=== PATIENT | male | born 1965 | race Two or more races ===

== ENCOUNTER → 2023-11-10 09:45 | Outpatient (REF) | payer OTHER, SELFPAY | LOC: HWRCS 09:45 | PROVIDERS: ATTENDING PHYSICIAN Internal Medicine Cardiovascular Disease; FAMILY PHYSICIAN Family Medicine | DX: I27.29 Other secondary pulmonary hypertension (principal) | CPT/HCPCS: 93306 ==

== ENCOUNTER 2023-12-26 10:22 | Emergency (ER) | payer OTHER, SELFPAY ==
[2023-12-26 10:23] VITALS: BP 167/104
[2023-12-26 10:40] VITALS: BP 147/87
[2023-12-26 10:44] VITALS: BMI 30.1
--- NOTE | 2023-12-26 10:46 | ED.GENMED ---
History of Present Illness
<Megan Morel PA-C - Last Filed: 12/26/23 18:31>
General
Chief Complaint: Urinary Symptoms
Source: patient
Exam Limitations: none
Time Seen by Provider: 12/26/23 10:36
Nursing documentation reviewed up to this point in time: agreed with
History of Present Illness
History of Present Illness:
Patient is a 50-year-old male with history CAD, hypertension,, kidney stones presenting to the emergency department for evaluation of right flank discomfort. Patient states symptoms started yesterday evening around 930 after he woke up flight of
stairs. He reports pain is right flank all associated dysuria, hematuria, malodorous urine. He did have 1 episode of nausea this morning. Patient denies any fever, chills, vomiting. Patient was seen by his primary care physician this morning and
due to concern of kidney stones and signs of infection on urinalysis was sent to the emergency department for further evaluation.
Patient does have a history of kidney stones a few years ago which required surgical management. Patient states this pain is not nearly as severe as prior kidney stone pain.
Patient does take Plavix.
Past History
<Megan Morel PA-C - Last Filed: 12/26/23 18:31>
Past History
ED Past Medical History: CAD, CHF, GERD, HTN and Psychiatric
ED Past Surgical History: Cardiac and Orthopedic
Social History
Tobacco: Non-smoker
Alcohol: Occasional
Drug: None
Personal:
Living: with family
Review of Systems
<Megan Morel PA-C - Last Filed: 12/26/23 18:31>
Review of Systems
Allergies reviewed?: Yes
All Other Systems: ROS reviewed and negative except as documented in HPI and ROS
Phy Exam
<Megan Morel PA-C - Last Filed: 12/26/23 18:31>
Physical Exam
Physical Exam:
Vitals: Mildly hypertensive, otherwise vital signs stable. Afebrile
General: Patient is well appearing, no acute distress.
Skin: Warm and dry, no rashes or lesions
Head: Normocephalic, atraumatic
Throat: Protecting airway
Neck: Normal ROM, no cervical spine tenderness, no meningismus
Cardiac: Regular rate and rhythm, no murmurs.
Pulm: Normal respiratory effort, no wheezes, rales, rhonchi heard on exam.
Abdomen: Abdomen soft. Mild tenderness in right mid abdomen and right lower abdomen without rebound tenderness or guarding. No CVA tenderness
Extremities: No evidence of cyanosis or edema. Great distal pulses
Neuro: Grossly intact.
Psychiatric: Normal affect.
Course
<Megan Morel PA-C - Last Filed: 12/26/23 18:31>
Orders/Labs/Results
Orders:
Orders
12/26/23 10:44
Complete Blood Count/With Diff Urgent
Comprehensive Metabolic Panel Urgent
Urinalysis Reflex To Culture Urgent
Date Specimen was Collected: 12/26/23
Time Specimen was Collected: 10:34
Urine Microscopic Reflex Cult Urgent
Urine Culture Urgent
NED Source: U
Specimen Description:
Date Specimen was Collected: 12/26/23
Time Specimen was Collected: 10:34
12/26/23 11:01
0.9% Sodium Chloride 1000 ml [Nss] 1,000 ml IV BOLUS
12/26/23 11:03
CT Abd/pel Without Iv Or Oral Urgent
Comment:
Reason For Exam: R flank pain +hematuria
12/26/23 12:24
CefTRIAXone [Rocephin] 1,000 mg IV NOW STA
12/26/23 12:39
Ondansetron Injectable [Zofran] 4 mg .ROUTE .[facility]
Ondansetron Injectable [Zofran] 4 mg IV NOW STA
Ondansetron Injectable [Zofran] 4 mg IV NOW STA
Abnormal Lab Results
12/26/23
10:44
MCH 31.3 H pg
(27.0-31.0)
Absolute Neuts (auto) 7.8 H 10^3/uL
(1.4-6.5)
Absolute Monos (auto) 0.7 H 10^3/uL
(0.1-0.6)
Lymphocytes % 17.2 L %
(20.5-51.1)
Glucose 102 H mg/dl
(70-99)
Ur Occult Blood Reflex 4+ A
(Negative)
Urine Nitrite (Reflex) Positive A
(Negative)
Leukocyte Esterase Rfl 1+ A
(Negative)
Urine RBC 80-90 A /HPF
(0-2)
Urine WBC (Reflex) 50-60 A /HPF
(0-5)
Urine Bacteria (Reflex) Many A
(Negative)
Urine Glucose 3+ A
(Negative)
Urine Albumin (Reflex) 1+ A
(Neg - Trace)
12/26/23 10:44
12/26/23 10:44
Vital Signs
Initial and Last Documented VS:
Initial Vital Signs
Temp Pulse Resp BP Pulse Ox
98.5 F 84 18 167/104 98
12/26/23 10:23 12/26/23 10:23 12/26/23 10:23 12/26/23 10:23 12/26/23 10:23
Last Documented Vital Signs
Temp Pulse Resp BP Pulse Ox
98.5 F 79 17 150/86 98
12/26/23 10:23 12/26/23 11:33 12/26/23 11:33 12/26/23 12:43 12/26/23 12:45
<Andrew Bhatia, DO - Last Filed: 12/26/23 12:24>
Orders/Labs/Results
Orders:
Orders
12/26/23 10:44
Complete Blood Count/With Diff Urgent
Comprehensive Metabolic Panel Urgent
Urinalysis Reflex To Culture Urgent
Date Specimen was Collected: 12/26/23
Time Specimen was Collected: 10:34
Urine Microscopic Reflex Cult Urgent
Urine Culture Urgent
NED Source: U
Specimen Description:
Date Specimen was Collected: 12/26/23
Time Specimen was Collected: 10:34
12/26/23 11:01
0.9% Sodium Chloride 1000 ml [Nss] 1,000 ml IV BOLUS
12/26/23 11:03
CT Abd/pel Without Iv Or Oral Urgent
Comment:
Reason For Exam: R flank pain +hematuria
12/26/23 12:24
CefTRIAXone [Rocephin] 1,000 mg IV NOW STA
12/26/23 12:39
Ondansetron Injectable [Zofran] 4 mg .ROUTE .[facility]-MED ONE
Ondansetron Injectable [Zofran] 4 mg IV NOW STA
Ondansetron Injectable [Zofran] 4 mg IV NOW STA
Abnormal Lab Results
12/26/23
10:44
MCH 31.3 H pg
(27.0-31.0)
Absolute Neuts (auto) 7.8 H 10^3/uL
(1.4-6.5)
Absolute Monos (auto) 0.7 H 10^3/uL
(0.1-0.6)
Lymphocytes % 17.2 L %
(20.5-51.1)
Glucose 102 H mg/dl
(70-99)
Ur Occult Blood Reflex 4+ A
(Negative)
Urine Nitrite (Reflex) Positive A
(Negative)
Leukocyte Esterase Rfl 1+ A
(Negative)
Urine RBC 80-90 A /HPF
(0-2)
Urine WBC (Reflex) 50-60 A /HPF
(0-5)
Urine Bacteria (Reflex) Many A
(Negative)
Urine Glucose 3+ A
(Negative)
Urine Albumin (Reflex) 1+ A
(Neg - Trace)
12/26/23 10:44
12/26/23 10:44
Vital Signs
Initial and Last Documented VS:
Initial Vital Signs
Temp Pulse Resp BP Pulse Ox
98.5 F 84 18 167/104 98
12/26/23 10:23 12/26/23 10:23 12/26/23 10:23 12/26/23 10:23 12/26/23 10:23
Last Documented Vital Signs
Temp Pulse Resp BP Pulse Ox
98.5 F 79 17 150/86 98
12/26/23 10:23 12/26/23 11:33 12/26/23 11:33 12/26/23 12:43 12/26/23 12:45
<Megan Morel PA-C - Last Filed: 12/26/23 18:31>
MDM/Problems Addressed
Differential Diagnosis Includes:
Not limited to: Kidney stone, UTI, pyelonephritis, prostatitis, appendicitis
MDM/Problems Addressed:
58 year old male presenting with right flank pain associated with dysuria and 1 episode of vomiting. Symptom started last night. Patient does have history of kidney stones. Patient denies any fever, chills, weakness. Patient was seen by primary
care this morning and referred to emergency department given findings of infected urinalysis and concern for kidney stone. Patient hypertensive on arrival to Emergency Department, otherwise vital signs stable. Patient is afebrile. Physical exam
as above. Patient is well-appearing, conversational and nontoxic-appearing. Patient currently with no pain. Abdomen soft with very mild right mid abdomen tenderness. No rebound tenderness or guarding. There is no CVA tenderness. Patient is
perfusing well. Differential broad at this time although does include kidney stone, UTI, pyelonephritis, prostatitis, etc. Will initiate basic labs, check urine, check noncontrast abdomen/pelvis for stone search. Patient denies allergies at this
time. Will give fluids. Closely monitor and reassess.
Chronic conditions affecting care:
History of kidney stones, CAD on Plavix, hypertension
Acute Exacerbation and/or Progression of Chronic Illness:
Acute hypertensive
<Megan Morel PA-C - Last Filed: 12/26/23 18:31>
*Radiology
Radiology exam reviewed: preliminary read by ED provider and radiology read reviewed
*Pulse Oximetry
Patient hypoxic: no
*EKG
Interpreted by ED Provider?: NA
*Molder Foam [employer]ber Interpretation
Rate: Molder Foam Rubber- N/A
*Critical Care Note
Total Time (30-74mins, 75-104mins- exclusive of procedures): Not Applicable
<Megan Morel PA-C - Last Filed: 12/26/23 18:31>
Update Note
Update Note:
Update: Labs noted. CBC and chemistry without any clinically significant abnormalities. No leukocytosis. Urine does appear infected. CT abdomen/pelvis shows no evidence of obstructing stones. Patient comfortable in no pain at this time. Given
no evidence of obstructing stone�suspect likely upper urinary tract infection. Will give dose of Rocephin in emergency department and transition to p.o. cefpodoxime.
Update: Patient did have an episode of vomiting following IV Rocephin. Into reassess patient who is feeling much better after dose of Zofran emergency department. He is afebrile and nontoxic-appearing. Comfortable discharge. Return precautions
discussed at length with patient. He will follow-up with primary care later this week and return with any signs of worsening infection.
ED Attending Note
<Megan Morel PA-C - Last Filed: 12/26/23 18:31>
-
Portions of this chart may have been created with voice recognition software.� Occasional wrong word or��sound alike� substitutions may have occurred due to the inherent limitations of voice recognition software.
<Andrew Bhatia, DO - Last Filed: 12/26/23 12:24>
ED Attending Note
Patient seen and examined by attending physician: Yes
I performed the substantive portion of visit, reviewed & personally made and approve the management plan that is documented in note by myself or MARILEE.: Yes
ED Attending Note:
Seen with PA examined independently nontoxic 58-year-old male with flank pain and nausea which is resolved does have dysuria and frequency urinalysis noted culture pending CT noted no obstructing stone
Discharge Plan
Departure
Patient Disposition: Home (Routine Discharge)
Date of Disposition: 12/26/23
Time of Disposition: 12:35
Patient with high blood pressure during this ER visit?: Yes
Condition: Good
Covid-19: Not Applicable
Discharge Problem:
Acute upper urinary tract infection
Instructions: Urinary Tract Infection, Adult (DC), BLOOD PRESSURE
Prescriptions:
New
cefpodoxime 200 mg tablet
200 mg PO BID 10 Days Qty: 20 0RF
ondansetron 4 mg tablet,disintegrating
4 mg PO TIDPRN PRN (Reason: nausea/vomiting) Qty: 7 0RF
No Action
tamsulosin 0.4 mg Capsule
0.4 mg PO DAILY Qty: 30 1RF
metformin 500 mg Tablet
500 mg PO BID@0800,1700 Qty: 60 2RF
Jardiance 10 mg Tablet
10 mg PO DAILY Qty: 30 2RF
atorvastatin 80 mg Tablet
80 mg PO QPM Qty: 30 1RF
aspirin 81 mg Tablet,Chewable
81 mg PO DAILY Qty: 30 1RF
acetaminophen 325 mg Tablet
650 mg PO Q6HPRN PRN (Reason: mild pain,headache,temp >101F ) Qty: 0 0RF
clopidogrel 75 mg Tablet
75 mg PO DAILY Qty: 30 2RF
metoprolol succinate [metoprolol succinate] 25 mg tablet extended release 24 hr
25 mg PO DAILY Qty: 30 2RF
ezetimibe 10 mg Tablet
10 mg PO DAILY
torsemide 40 mg Tablet
40 mg PO DAILY
amlodipine [Norvasc] 5 mg tablet
5 mg PO DAILY Qty: 30 5RF
nitroglycerin 0.4 mg tablet, sublingual
0.4 mg sublingual Q5M PRN (Reason: chest pain) Qty: 25 0RF
Referrals:
Brian Arriaga DO [Family Provider] - Follow up in 5-7 days
Activity Restrictions/Additional Instructions:
RETURN TO THE EMERGENCY DEPARTMENT WITH ANY FEVERS, CHILLS, WEAKNESS, SEVERE ABDOMINAL PAIN/BACK PAIN, INTRACTABLE NAUSEA/VOMITING, INABILITY TO URINATE, WORSENING IN CURRENT SYMPTOMS, OR ANY OTHER CONCERNS
-The prescription has been sent to your pharmacy. You should take the antibiotic twice a day for the next 10 days.
-Is important to stay well-hydrated.
-Follow-up your primary care within the week to ensure symptoms are improving/for further evaluation
Monitor your symptoms closely and return to the emergency department with any acute worsening/new symptoms or signs of worsening infection.
Interventions
Interventions:
*Risk Screen - Suicide Last Done: 12/26/23 10:44
*General Assessment Last Done: 12/26/23 10:44
*Neglect/Abuse Screening Last Done: 12/26/23 10:44
ED- Fall Risk Assessment Last Done: 12/26/23 10:46
*ED COVID-19 Vaccine History Last Done: 12/26/23 10:44
*Nursing Disposition Last Done: 12/26/23 12:50
ED-Male Genitourinary Assessment Last Done: 12/26/23 10:45
Discharge Date and Time
Discharge Date/Time: 12/26/23 12:53
Print Language: HONDURAN
[2023-12-26 10:59] LABS: % Basophils 0.4 % (0-2); % Eosinophils 1.5 % (0-6); % Immature Granulocytes 0.3 % (0-0.5); % Lymphocytes 17.2 % (20.5-51.1); % Monocytes 6.2 % (1.7-9.3); % Neutrophils 74.4 % (42.2-75.2); Absolute Eosinophils 0.2 10^3/uL (0-0.7); Absolute Lymphocytes 1.8 10^3/uL (1.2-3.4); Absolute Monocytes 0.7 10^3/uL (0.1-0.6); Absolute Neutrophils 7.8 10^3/uL (1.4-6.5); Hematocrit 45.8 % (39.0-52.0); Hemoglobin 15.7 g/dL (13.0-18.0); Mean Corp Hgb Conc. 34.3 g/dL (33.0-37.0); Mean Corpuscular Hgb 31.3 pg (27.0-31.0); Mean Corpuscular Volume 91.2 fL (80.0-94.0); Mean Platelet Volume 8.9 fL (7.4-10.4); Nucleated Red Blood Cells % 0 % (-); Platelet Count 241 10^3/uL (130-400); Red Blood Cell Count 5.02 10^6/uL (4.70-6.10); Red Cell Dist. Width 12.9 % (11.5-14.5); White Blood Cell Count 10.5 10^3/uL (4.8-10.8)
[2023-12-26 11:00] VITALS: BP 141/87
[2023-12-26 11:06] LABS: Urine Albumin 1+ (Neg - Trace); Urine Bilirubin Negative (Negative); Urine Character Very Cloudy (Clear); Urine Color Yellow; Urine Glucose 3+ (Negative); Urine Ketone Negative (Negative); Urine Leukocyte 1+ (Negative); Urine Nitrite Positive (Negative); Urine Occult Blood 4+ (Negative); Urine Specific Gravity 1.025 (<1.030); Urine Urobilinogen Negative (Neg - 1+)
[2023-12-26] MEDS: NSS 1000 IV (11:07)
[2023-12-26 11:12] LABS: ALT (SGPT) 22 U/L (0-50); AST (SGOT) 30 U/L (17-59); Albumin 4.9 g/dl (3.5-5.0); Alkaline Phosphatase 86 U/L (38-126); Blood Urea Nitrogen 16 mg/dl (9-20); Calcium 9.4 mg/dl (8.4-10.2); Carbon Dioxide 25 mmol/L (22-30); Chloride 103 mmol/L (98-107); Estimated Creatinine Clearance 116 ml/min; Glucose 102 mg/dl (70-99); Potassium 4.5 mmol/L (3.5-5.1); Sodium 142 mmol/L (135-145); Total Bilirubin 1.1 mg/dl (0.2-1.3); Total Protein 7.7 g/dl (6.3-8.2); eGFR > 60.00
[2023-12-26 12:00] LABS: Urine White Cell 50-60 /HPF (0-5)
[2023-12-26 12:01] LABS: Urine Bacteria Many (Negative); Urine Red Blood Cell 80-90 /HPF (0-2)
[2023-12-26] MEDS: ROCEPHIN 1000 MG IV (12:34)
[2023-12-26] MEDS: ZOFRAN 4 MG IV (12:39)
[2023-12-26 12:41] VITALS: BP 174/103
[2023-12-26 12:43] VITALS: BP 150/86
== END 2023-12-26 12:53 | disposition home or self-care (01) ==
LOC: EMR 10:22
PROVIDERS: EMERGENCY PHYSICIAN Emergency Medicine; FAMILY PHYSICIAN Family Medicine
DX: N39.0 Urinary tract infection, site not specified (principal); I25.10 Atherosclerotic heart disease of native coronary artery without angina pectoris; I50.9 Heart failure, unspecified; I11.0 Hypertensive heart disease with heart failure
CPT/HCPCS: 99284; 96374; 96375; 96361; 74176; 80053; 81003; 81015; 85025; 87077; 87086; 87186

== ENCOUNTER 2024-10-28 13:56 | Emergency (ER) | payer OTHER, SELFPAY ==
[2024-10-28 13:56] VITALS: BMI 30.2
[2024-10-28 14:00] VITALS: BP 168/97
[2024-10-28 14:19] LABS: Hematocrit 46.7 % (39.0-52.0); Hemoglobin 15.7 g/dL (13.0-18.0); Mean Corp Hgb Conc. 33.6 g/dL (33.0-37.0); Mean Corpuscular Volume 91.9 fL (80.0-94.0); Nucleated Red Blood Cells % 0 % (-); Platelet Count 206 10^3/uL (130-400); Red Cell Dist. Width 12.3 % (11.5-14.5)
[2024-10-28 14:46] LABS: ALT (SGPT) 38 U/L (0-50); AST (SGOT) 34 U/L (17-59); Albumin 4.3 g/dl (3.5-5.0); Alkaline Phosphatase 82 U/L (38-126); Blood Urea Nitrogen 14 mg/dl (9-20); Calcium 8.9 mg/dl (8.4-10.2); Carbon Dioxide 28 mmol/L (22-30); Chloride 108 mmol/L (98-107); Glucose 87 mg/dl (70-99); Potassium 4.4 mmol/L (3.5-5.1); Sodium 140 mmol/L (135-145); Total Protein 7.0 g/dl (6.3-8.2); eGFR > 60.00
[2024-10-28 14:58] LABS: Troponin I < 0.012 ng/ml
[2024-10-28 16:29] VITALS: BP 132/89
[2024-10-28 17:00] VITALS: BP 129/74
--- NOTE | 2024-10-28 17:07 | ED.GENMED ---
History of Present Illness
General
Chief Complaint: Chest Pain
Source: patient
Exam Limitations: none
Time Seen by Provider: 10/28/24 16:21
Nursing documentation reviewed up to this point in time: agreed with
History of Present Illness
History of Present Illness:
see MDM
Past History
Past History
ED Past Medical History: CAD, CHF, GERD, HTN and Psychiatric
ED Past Surgical History: Cardiac and Orthopedic
Social History
Tobacco: Non-smoker
Alcohol: Occasional
Drug: None
Personal:
Living: with family
Phy Exam
Physical Exam
Physical Exam:
GENERAL: Alert , in no apparent distress
EYE: pupils equal and reactive
NECK: Supple
ENT: o/p clr, mmm.
CARDIAC: Regular rate and rhythm .
LUNGS: Clear breath sounds bilaterally, no acute respiratory distress, no wheezes/rales/rhonchi
ABDOMEN: Soft, without focal tenderness, no r/g, no cvat, normal bowel sounds
NEUROLOGICAL: Alert and oriented, no focal neuro deficits
SKIN: Warm and dry, skin intact.
MUSCULOSKELETAL: No edema, well perfused. neg arnie's sign
PSYCH: Normal and appropriate interaction.
Scores
Heart Score for Chest Pain Patients
STEMI patient?: No
History: Moderately Suspicious
ECG: Normal
Age: >45 - <65 years
Risk Factors: >/= 3 Risk Factors or History of CAD
Troponin: </= Normal Limit
Heart Score for Chest Pain Patients: 4
Heart Score Risk: 20.3% MACE over next 6 weeks
Course
Orders/Labs/Results
Orders:
Orders
10/28/24 13:57
EKG [Electrocardiogram (*1)] Urgent
Reason for Study: Chest Pain
EKG- Treatment ONCE
10/28/24 14:03
Cardiac Monitoring- Treatment ONCE
IV Insert/Care/Rem.- Treatment PRN
O2 Therapy [RESP] Urgent
Titrate/Wean O2 to maintain O2 sat greater than (%): 90
Special Instructions: Maintain sats >/=90%
Pulse Ox/spot Check [RESP] Urgent
Quantity: 1
Special Instructions: ON ROOM AIR
10/28/24 14:09
Complete Blood Count/With Diff Urgent
Comprehensive Metabolic Panel Urgent
Troponin I Urgent
10/28/24 17:14
Electrocardiogram (*1) Urgent
Reason for Study: Chest Pain
EKG- Treatment ONCE
CR Chest - 2 Views Urgent
Comment:
Reason For Exam: chest pain
10/28/24 17:31
D-Dimer Urgent
Troponin I Urgent
Abnormal Lab Results
10/28/24
14:09
Chloride 108 H mmol/L
(98-107)
10/28/24 14:09
10/28/24 14:09
Vital Signs
Initial and Last Documented VS:
Initial Vital Signs
Temp Pulse Resp BP Pulse Ox
36.7 C 72 16 168/97 98
10/28/24 14:00 10/28/24 14:00 10/28/24 14:00 10/28/24 14:00 10/28/24 14:00
Last Documented Vital Signs
Temp Pulse Resp BP Pulse Ox
36.7 C 64 13 133/85 98
10/28/24 14:00 10/28/24 18:45 10/28/24 18:45 10/28/24 18:00 10/28/24 18:45
MDM/Problems Addressed
Differential Diagnosis Includes:
see MDM
MDM/Problems Addressed:
Note:
Note:
CHIEF COMPLAINT(S)
Chest pain with associated fatigue and headache.
HISTORY OF PRESENT ILLNESS
The patient is a 59-year-old male with a significant cardiac history of a coronary artery bypass grafting (CABG) procedure involving four vessels three years ago. The patient presented with episodes of chest pain starting Monday and intermittently
persisting through Monday. The symptoms settled in for a more prolonged period from 10:30 PM last night until approximately 1:30 AM this morning. The patient described the pain as intense, more persistent compared to previous episodes, and
mentioned associated fatigue so severe that he remained seated all day.
The patient reported having a brief shortness of breath, nausea, but denied sweating, fever, chills, or cough. There was no irradiation of pain to the arm, back, or any exertional worsening noted, although he experienced fatigue after physical
exertion, such as mowing the lawn on Monday and Monday. He did not use his prescribed nitroglycerin during these episodes. It was noted that there were differences in his electrocardiogram from a month ago compared to one from earlier today,
prompting his primary provider to send him to the emergency department.
CHRONIC MEDICAL CONDITIONS SIGNIFICANTLY AFFECTING CARE
- Coronary artery disease, status post four-vessel CABG three years ago.
- Hypertension, managed with blood pressure medication.
- Diabetes mellitus, unspecified management type.
MEDICATIONS
- Aspirin (baby dose)
- Blood pressure medication (Lescol)
PHYSICAL EXAM
- Nursing notes reviewed and vital signs reviewed.
- Physical examination findings were not explicitly discussed beyond the patients subjective reports.
PLAN
- Perform a D-Dimer test to screen for possible blood clot or other vascular issues.
- Consult with the under cutting machine operator information resource consultant for quick follow-up.
- Advise the patient to refrain from strenuous activities until further evaluation.
- Arrange for the patient to follow up with their under cutting machine operator expeditiously, aiming for an appointment within a few days.
- Stress test consideration was discussed based on the recent change in the pattern of chest pain and electrocardiogram findings.
DIFFERENTIAL DIAGNOSIS
The Differential Diagnosis includes, in no particular order and is not limited to:
1. Unstable angina
2. Myocardial infarction
3. Esophageal spasm
4. Gastroesophageal reflux disease
5. Pericarditis
6. Pulmonary embolism
7. Acute coronary syndrome
8. Aortic dissection
9. Costochondritis
10. Musculoskeletal chest pain
10/28/24 - 18:48
X-ray results were clear, and both troponin enzymes and D-Dimer tests returned negative. After consulting with Dr. wise (and ED attending), discharge is approved with instructions to utilize the chest-team hotline for follow-up. An appointment is
to be scheduled within the next two to three days. The patient is advised to call 911 or return to the hospital if exertional symptoms occur, or if experiencing shortness of breath with chest pain. No immediate concerns noted; the patient appears
stable and is feeling well enough to go home.
*Pulse Oximetry
SaO2: 99
Oxygen Mode of Delivery: Room air
Patient hypoxic: no (98)
*Critical Care Note
Total Time (30-74mins, 75-104mins- exclusive of procedures): Not Applicable
ED Attending Note
-
Portions of this chart may have been created with voice recognition software.� Occasional wrong word or��sound alike� substitutions may have occurred due to the inherent limitations of voice recognition software.
Discharge Plan
Departure
Patient Disposition: Home (Routine Discharge)
Date of Disposition: 10/28/24
Time of Disposition: 18:43
Patient with high blood pressure during this ER visit?: No
Condition: Fair
Covid-19: Not Applicable
Discharge Problem:
Chest pain
Instructions: Chest Pain DCA Follow Up
Prescriptions:
No Action
tamsulosin 0.4 mg Capsule
0.4 mg PO DAILY Qty: 30 1RF
metformin 500 mg Tablet
500 mg PO BID@0800,1700 Qty: 60 2RF
Jardiance 10 mg Tablet
10 mg PO DAILY Qty: 30 2RF
atorvastatin 80 mg Tablet
80 mg PO QPM Qty: 30 1RF
aspirin 81 mg Tablet,Chewable
81 mg PO DAILY Qty: 30 1RF
acetaminophen 325 mg Tablet
650 mg PO Q6HPRN PRN (Reason: mild pain,headache,temp >101F ) Qty: 0 0RF
clopidogrel 75 mg Tablet
75 mg PO DAILY Qty: 30 2RF
metoprolol succinate [metoprolol succinate] 25 mg tablet extended release 24 hr
25 mg PO DAILY Qty: 30 2RF
ezetimibe 10 mg Tablet
10 mg PO DAILY
torsemide 40 mg Tablet
40 mg PO DAILY
amlodipine [Norvasc] 5 mg tablet
5 mg PO DAILY Qty: 30 5RF
nitroglycerin 0.4 mg tablet, sublingual
0.4 mg sublingual Q5M PRN (Reason: chest pain) Qty: 25 0RF
cefpodoxime 200 mg tablet
200 mg PO BID 10 Days Qty: 20 0RF
ondansetron 4 mg tablet,disintegrating
4 mg PO TIDPRN PRN (Reason: nausea/vomiting) Qty: 7 0RF
Referrals:
Brian Arriaga DO [Family Provider, Family Practice]
Jake Wise MD [Active, Cardiology] - Follow up in 2-3 days
Activity Restrictions/Additional Instructions:
you had 2 negative troponin enzymes and a normal D-dimer as well as a normal chest x-ray. I spoke with the under cutting machine operator who agreed that you could go home tonight but to avoid strenuous activity and to have close outpatient follow-up. We have
placed you in the chest pain hotline you should be receiving a phone call within a day or 2 to schedule a prompt appointment. If you have any recurrent chest pain or exertional symptoms, shortness of breath etc. you need to return immediately.
Interventions
Interventions:
*Risk Screen - Suicide Last Done: 10/28/24 14:00
*General Assessment Last Done: 10/28/24 14:00
*Neglect/Abuse Screening Last Done: 10/28/24 14:00
*ED- Fall Risk Assessment Last Done: 10/28/24 16:32
*ED COVID-19 Vaccine History Last Done: 10/28/24 16:32
*Nursing Disposition Last Done: 10/28/24 19:06
ED- Cardiac Assessment Last Done: 10/28/24 16:31
Discharge Date and Time
Discharge Date/Time: 10/28/24 19:06
Print Language: ESTONIAN
[2024-10-28 18:00] VITALS: BP 133/85
[2024-10-28 18:04] LABS: Troponin I < 0.012 ng/ml
[2024-10-28 18:17] LABS: D-Dimer < 0.27 ug/mlFEU (0.00-0.50)
== END 2024-10-28 19:06 | disposition home or self-care (01) ==
LOC: EMR 13:56
PROVIDERS: Emergency Medicine; Physician Assistant; EMERGENCY PHYSICIAN Emergency Medicine; FAMILY PHYSICIAN Family Medicine; OTHER PHYSICIAN Internal Medicine Cardiovascular Disease
DX: R07.9 Chest pain, unspecified (principal); I25.10 Atherosclerotic heart disease of native coronary artery without angina pectoris; I11.0 Hypertensive heart disease with heart failure; I50.9 Heart failure, unspecified; E11.9 Type 2 diabetes mellitus without complications; Z95.1 Presence of aortocoronary bypass graft
CPT/HCPCS: 99285; 71046; 80053; 84484; 85025; 85379; 93005

== ENCOUNTER → 2024-11-28 07:44 | Outpatient (REF) | payer OTHER, SELFPAY | LOC: RCS 07:44 | PROVIDERS: ATTENDING PHYSICIAN Nurse Practitioner; FAMILY PHYSICIAN Family Medicine | DX: I25.10 Atherosclerotic heart disease of native coronary artery without angina pectoris (principal); I50.32 Chronic diastolic (congestive) heart failure | CPT/HCPCS: 93306 ==

== ENCOUNTER → 2024-12-10 06:56 | Outpatient (REF) | payer OTHER, SELFPAY | LOC: HWRCS 06:56 | PROVIDERS: ATTENDING PHYSICIAN Nurse Practitioner; FAMILY PHYSICIAN Family Medicine | DX: I50.32 Chronic diastolic (congestive) heart failure (principal); I25.10 Atherosclerotic heart disease of native coronary artery without angina pectoris | CPT/HCPCS: 78452; 93017; A9500; J2785 ==

== ENCOUNTER 2025-02-12 06:23 | Day surgery (SDC) | payer OTHER, SELFPAY ==
[2025-02-12 07:11] LABS: Glucose - Point of Care 92 mg/dl (70-99)
== END 2025-02-12 09:52 | disposition home or self-care (01) ==
LOC: GI 06:23
PROVIDERS: ATTENDING PHYSICIAN Student in an Organized Health Care Education/Training Program; FAMILY PHYSICIAN Family Medicine
DX: Z12.11 Encounter for screening for malignant neoplasm of colon (principal); D12.4 Benign neoplasm of descending colon; K57.30 Diverticulosis of large intestine without perforation or abscess without bleeding; K64.4 Residual hemorrhoidal skin tags; Z86.0100 Personal history of colon polyps, unspecified; Z87.19 Personal history of other diseases of the digestive system; K62.89 Other specified diseases of anus and rectum
CPT/HCPCS: 45385; 45380; 82962; 88305